=== PATIENT | female | born 1995 | race Caucasian/White ===

== ENCOUNTER → 2022-07-26 | Outpatient (CLI) | payer OTHER ==
[2022-07-26 13:10] VITALS: BP 118/84; PULSE 91; RESP 17; TEMP 98
--- NOTE | 2022-07-26 14:04 | P.HPOB ---
History of Present Illness H&P Date: 07/26/22 Chief Complaint: The patient is here for her routine gynecologic exam. This is a 27-year-old with an LMP of 07/14/2022. The patient is here to establish with this office. She uses condoms for control. She previously used control pills in the past, but says she felt strange and would prefer to go without hormonal methods at this time. Her last gynecologic exam was about 3-4 years ago. She is without gynecologic complaints. She does not plan on getting in the upcoming year, but may want to start a family eventually. Review of Systems The patient's weight has been stable over the last year. She denies resp iratory, cardiac, or G.I. problems. 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 History of Any Multi-Drug Resistant Organisms: None Reported Past Surgical History: No Surgical Hx Reported Additional Past Surgical History / Comment(s): VTP. Past Anesthesia/Blood Transfusion Reactions: No Reported Reaction Past Psychological History: No Psychological Hx Reported Smoking Status: Never smoker Past Alcohol Use History: None Reported Additional Drug Use History / Comment(s): CBD GUMMIES infrequently to help her to sleep. She denies smoking marijuana. Additional History: She is single and has been with her boyfriend since 2017. She has moved from [place]. [place] - Past Family History Mother Additional Family Medical History / Comment(s): Depression. Maternal grandmother had dementia. Father Family Medical History: Cancer Additional Family Medical History / Comment(s): Pancreatic cancer. Medications and Allergies Home Medications Medication Instructions Recorded Confirmed Type Multivitamin [Multivitamins Adult 1 tab PO DAILY 07/26/22 07/26/22 History Gummies] Allergies Allergy/AdvReac Type Severity Reaction Status Date / Time adhesive tape Allergy Rash/Hives Unverified 07/26/22 13:03 latex Allergy Rash/Hives Unverified 07/26/22 13:03 Exam Vital Signs Temp Pulse Resp BP Pulse Ox 07/26/22 13:05 98 F 91 17 118/84 96 Intake and Output 07/25/22 07/26/22 07/26/22 22:59 06:59 14:59 Other: Weight 55.338 kg Height 5 feet 4 inches, weight 122 pounds, BMI 20.9. This is a well-developed well-nourished female who is alert and oriented times 3 in no acute distress. HEENT: Within normal limits. NECK: Supple without mass or thyromegaly. CHEST AND LUNGS: Clear to auscultation. HEART: Regular rate and rhythm. BREASTS: Are without mass or discharge. AXILLARY EXAM: Negative for adenopathy. BACK: Negative for CVA tenderness. ABDOMEN: Soft, nontender, without palpable masses. PELVIC EXAM: Normal external genitalia. Cervix and vagina appear normal. There is no unusual discharge. There is no evidence of prolapse. The uterus is midposition, nongravid size and nontender. There are no palpable adnexal masses or tenderness. RECTAL EXAM: Deferred. EXTREMITIES: Nontender. IMPRESSION: 1. 27-year-old female using condoms for control, with normal gynecologic exam. PLAN: 1. Pap smear was performed. This will be cytology only. 2. Self breast awareness was discussed with the patient. We have also discussed symptoms associated with inflammatory breast cancer. 3. We have discussed various control options. She is declining any options other than condoms at this time. She was instructed to call if she changes her mind. I have recommended that she continue taking a daily multivitamin with folic acid. We have discussed how this can decrease the risk for certain defects if she does get . 4. She has completed her Covid vaccination series and has received a booster. 5. She was advised to return in one year for her annual well woman exam.
== END ==
LOC: WWCWWP 12:55
PROVIDERS: ATTEND Obstetrics & Gynecology
DX: Z01.419 Encounter for gynecological examination (general) (routine) without abnormal findings (principal); Z91.048 Other nonmedicinal substance allergy status; Z91.040 Latex allergy status